=== PATIENT | male | born 1975 | race Caucasian/White ===

== ENCOUNTER 2018-03-12 07:46 | Outpatient (CLI) | payer BC, OTHER ==
[2018-03-14 10:41] LABS: HSV 2 IGG TYPE SPECIFIC AB <0.90 index
[2018-03-14 12:27] LABS: HEPATITIS B CORE AB TOTAL NON-REACTIVE (NON-REACTIVE)
[2018-03-14 15:01] LABS: HIV AG/AB 4TH GEN NON-REACTIVE (NON-REACTIVE)
== END 2018-03-12 23:59 | disposition home or self-care (01) ==
LOC: LAB.WCP 07:46
PROVIDERS: ATTEND Family Medicine
DX: Z72.89 Other problems related to lifestyle (principal)
CPT/HCPCS: 36415; 81599; 86592; 86695; 86696; 86704; 86803; 87389; 87491; 87591

== ENCOUNTER 2020-01-15 19:53 | Outpatient (CLI) | payer OTHER ==
--- NOTE | 2020-01-16 09:43 | XRAY Report ---
PROCEDURE: Knee 4 View BILAT INDICATIONS: ARTHRITIS, LEFT KNEE TECHNIQUE: 3 views of the right and left knee(s) were acquired. COMPARISON: None. FINDINGS: Bones: No fractures or dislocations. No suspicious bony lesions. Postsurgical changes compatible pr ior left knee ACL repair are noted. Mild lateral knee tricompartmental osteoarthritis. Soft tissues: No joint effusion. No suspicious soft tissue calcifications. IMPRESSION: 1. Status post left ACL repair. 2. Mild bilateral knee tricompartmental osteoarthritis. 3. No acute osseous lesion. If there is continued clinical concern for pathology, then advanced imagi ng (CT, MR, bone scan) should be considered for further evaluation. Reviewed by: Lucita Godinez MD, PhD on 01/16/2020 9:41 AM PST Approved by: Lucita Godinez MD, PhD on 01/16/2020 9:41 AM PST Station ID: [id number]
== END 2020-01-15 19:54 | disposition home or self-care (01) ==
LOC: DI 19:53
PROVIDERS: ATTEND Physician Assistant
DX: M17.0 Bilateral primary osteoarthritis of knee (principal)

== ENCOUNTER 2020-07-10 18:15 | Outpatient (CLI) | payer OTHER ==
--- NOTE | 2020-07-11 09:35 | XRAY Report ---
PROCEDURE: Lumbar Spine 2 View INDICATIONS: LUMBAR RADICULOPATHY TECHNIQUE: 2 views of the lumbar spine were acquired. COMPARISON: None. FINDINGS: Bones: 5 [id number] vertebrae are present. There is normal bony alignment. No vertebral body compression fractures. No suspicious bony lesions. There is degenerative disc disease, moderate at L4-L5, and mild at other levels. Moderate facet arthropathy at L4-L5 and L5-S1. Soft tissues: Overlying bowel gas pattern is normal. No suspicious soft tissue calcifications. IMPRESSION: Moderate degenerative disc and facet disease in lumbar spine. Reviewed by: Juice Bo MD on 07/11/2020 9:33 AM PDT Approved by: Juice Bo MD on 07/11/2020 9:33 AM PDT Station ID: [id number]
== END 2020-07-10 18:16 | disposition home or self-care (01) ==
LOC: DI 18:15
PROVIDERS: ATTEND Physician Assistant
DX: M47.816 Spondylosis without myelopathy or radiculopathy, lumbar region (principal); M47.817 Spondylosis without myelopathy or radiculopathy, lumbosacral region; M51.36 Other intervertebral disc degeneration, lumbar region

== ENCOUNTER 2022-04-07 08:29 | Outpatient (CLI) | payer OTHER ==
[2022-04-07 08:43] LABS: BASOPHILS % (AUTO) 0.5 %; EOSINOPHILS % (AUTO) 0.5 %; HCT - HEMATOCRIT 40.8 % (42.0-52.0); HGB - HEMOGLOBIN 13.4 g/dL (14.0-18.0); LYMPHOCYTES # (AUTO) 1.3 10^3/uL (1.5-3.5); LYMPHOCYTES % (AUTO) 35.8 %; MEAN CORPUSCULAR HEMOGLOBIN 29.8 pg (27.0-31.0); MEAN CORPUSCULAR HGB CONC 32.8 g/dL (32.0-36.0); MEAN CORPUSCULAR VOLUME 90.7 fL (80.0-94.0); MEAN PLATELET VOLUME 9.4 fL (7.4-11.4); MONOCYTES # (AUTO) 0.3 10^3/uL (0.0-1.0); MONOCYTES % (AUTO) 8.3 %; NEUTROPHILS # (AUTO) 2.1 10^3/uL (1.5-6.6); NEUTROPHILS % (AUTO) 54.9 %; PLT - PLATELET COUNT 172 10^3/uL (130-450); RED CELL DISTRIBUTION WIDTH 12.5 % (12.0-15.0); WHITE BLOOD COUNT 3.7 x10^3/uL (4.8-10.8)
[2022-04-07 09:00] LABS: ALBUMIN/GLOBULIN RATIO 1.3 (1.0-2.2); ALKALINE PHOSPHATASE 57 IU/L (42-121); ALT ALANINE AMINOTRANSFERASE 20 IU/L (10-60); AST ASPARTATE AMINOTRANSFERASE 18 IU/L (10-42); BILIRUBIN,TOTAL 0.6 mg/dL (0.2-1.0); BUN - BLOOD UREA NITROGEN 17 mg/dL (6-20); CALCIUM 8.3 mg/dL (8.5-10.3); CARBON DIOXIDE - CO2 28 mmol/L (21-32); CHLORIDE 105 mmol/L (101-111); CHOL/HDL RATIO 4.1 (<5.0); CHOLESTEROL 174 mg/dL; CREATININE 0.9 mg/dL (0.6-1.2); GFR - MDRD 90 (>89); GLUCOSE 99 mg/dL (70-100); HDL CHOLESTEROL 42 mg/dL; LDL CHOLESTEROL,CALCULATED 119 mg/dL; LDL/HDL RATIO 2.8 (<3.6); POTASSIUM 4.4 mmol/L (3.5-5.0); SODIUM 138 mmol/L (135-145); TRIGLYCERIDES 64 mg/dL; VLDL CHOLESTEROL 13 mg/dL
[2022-04-07 09:10] LABS: THYROID STIMULATING HORMONE 3.79 uIU/mL (0.34-5.60)
--- NOTE | 2022-04-07 21:00 | XRAY Report ---
PROCEDURE: Knee 3 View RT INDICATIONS: RIGHT KNEE PAIN TECHNIQUE: 3 views of the right knee(s) were acquired. COMPARISON: Knee radiographs 01/15/2020 FINDINGS: Bones: No acute fracture or dislocation. No definite or substantial joint space narrowing. Soft tissues: No joint effusion. No suspicious soft tissue calcifications. IMPRESSION: No acute osseous abnormality. If symptoms persist, follow-up radiographs and/or CT or MR I may be helpful for further evaluation. Reviewed by: Smooth Leslie MD on 04/07/2022 8:59 PM PST Approved by: Smooth Leslie MD on 04/07/2022 8:59 PM PST Station ID: [id number]
== END 2022-04-07 08:30 | disposition home or self-care (01) ==
LOC: LAB 08:29 → DI 08:30
PROVIDERS: ATTEND Physician Assistant
DX: M25.561 Pain in right knee (principal); R53.83 Other fatigue; E78.6 Lipoprotein deficiency
CPT/HCPCS: 36415; 80053; 80061; 83721; 84403; 84443; 85025

== ENCOUNTER 2022-04-15 08:36 | Outpatient (CLI) | payer OTHER ==
[2022-04-15 09:21] VITALS: BP 126/70
--- NOTE | 2022-04-15 09:21 | SLEEP CARE CONSULTATION ---
Information from patient questionnaire entered by Satish Lucia. I have reviewed and concur with the information entered by Satish Lucia. This document represents the service I personally performed and the decisions made by me, Janine Young ARNP. History of Present Illness Service Date and Time: 04/15/2022 0836 Reason for Visit: New patient Chief Complaint: reports: Insomnia, Unrefreshed sleep, Observed pauses in breathing, Fatigue Date of Onset: 10+YRS Usual bedtime: 9-12 Time it takes to fall asleep: VARIES Snores at night: Yes Observed to quit breathing while asleep: Yes Sleeps alone due to snoring: Yes Number of times waking at night: 1-2 Reasons for waking at night: reports: Snoring, Gasping for air (only when falling asleep), Bathroom. denies: Choking Toss, Turn, or Twitch while sleeping: Yes Recalls having dreams: Yes Usually gets out of bed at: 430-6AM Feels refreshed in the morning: No (unless he sleeps for 10-12 hours) Morning headache: No Sleepy or fatigued during the day: Yes Ever fallen asleep while driving: No (occasional drowsy driving in afternoons) Takes day naps: No Prior sleep studies: No Additional HPI information: I had the pleasure of seeing BROOKE SANFORD today regarding the possibility of him having a sleep disorder. His current complaints are unrefreshed sleep, observed pauses in breathing and fatigue. He states he has a feeling of restlessness and does not feel he is getting enough sleep. He has been told that he snores loudly enough that he will sleep separate from often. His has seen him stop breathing at night and tells him that he snores through his nose. He states he sleeps on his stomach and keeps his mouth closed usually. He states he feels more rested if he can get 10-12 hours of sleep. - Parasomnia Symptoms Ever been unable to move upon waking from sleep: No Walks in sleep: No Talks in sleep: Yes (mumbles in sleep) Ever acted out dreams in sleep: No Ever felt weak in the knees when startled or emotional: No Bothered by creepy, crawly, restless sensations in legs: No Problems with memory or concentration: Yes (both; concentration depends on what doing; memory worse) Subjective Initial Superior Sleepiness Scale score: 12 (04/15/22) Past Medical History Past Medical History: reports: Claustrophobia, Attention deficit, Other (facial injury, deviated septum repaired; ACL torn, repaired; Compression fracture vertebrae; 3 compressed lower spine; Diverticulitis, surgical repair ) Social History The patient's occupation is a [employer]. Patient is and lives in [place]. Have you smoked in the past 12 months: Yes (socially; chews tobacco regularly) Years of smokin Quit date: 2015 Alcohol use: Yes Alcohol amount and frequency: 1-3 PER DAY OBSTAINING FOR ONE YEAR Caffeine use: Yes Caffeine amount and frequency: 28OZ 7 DAYS A WEEK IN AM Family History Family history of sleep disordered breathing: Yes Family Hx Sleep Apnea: Mother: Snoring, Sleep apnea - Treated, Sibling: Snoring, Sleep apnea - Treated Allergies and Home Medications Known drug allergies: No Drug allergies reviewed: Yes (NKDA) Home medication list reviewed: Yes Allergy and home medication list: Medications: Gabapentin, prn ibuprofen, prn Tylenol, prn Review of Systems Cardiovascular: denies: high blood pressure Gastrointestinal: denies: heartburn Urinary: reports: frequency, urgency Neurological: reports: headaches, head trauma (multiple concussions throughout life) Psychiatric: reports: Attention Deficit Hyperactivity, claustrophobia Ear/Nose/Throat: reports: nasal congestion, injury to nose. denies: tonsillectomy Musculoskeletal: reports: joint pain, neck pain, back pain Physical Exam Vital signs obtained and entered by: SATISH Borrego MA Blood Pressure: 126/70 (LEFT ARM) Cuff size: regular Heart Rate: 73 O2 Saturation: 97 Height: 6 ft 1 in Weight: 215 lb 6.4 oz Body Mass Index: 28.4 BMI Classification: Overweight Neck circumference: 15.75 Mouth and throat: narrow oropharynx Soft palate: long Hard palate: normal Uvula: normal Uvula visualization: 25% Mallampati Class III Tongue: enlarged in size with teeth daniels on lateral edges Tonsils: small Neck: normal w/o lymphadenopathy or thyromegaly Heart: regular rate and rhythm Lungs: clear bilaterally Impression and Plan 1. Suspected Obstructive Sleep Apnea-Hypopnea Syndrome, as suggested by a history of loud and irregular snoring, observed cessation of breath while asleep, gasping or choking in sleep, unrefreshed sleep, cognitive impairment, and excessive daytime sleepiness. Narrow oropharynx and obesity are common predisposing factors for obstructive sleep apnea-hypopnea syndrome. I recommend proceeding to polysomnography to confirm the diagnosis and to assess severity. If the patient has significant sleep disordered breathing, a manual CPAP titration study will also be performed to find the optimal treatment pressure. I informed the patient of what the sleep studies involve and after some discussion, obtained agreement to proceed. The pathophysiology of obstructive sleep apnea-hypopnea syndrome was discussed with the patient and health risks of cardiovascular and cerebrovascular disease if not treated. Risks of drowsy driving discussed in detail and patient advised to avoid long distance driving and to pull out operator at the first sign of drowsiness. Patient agreed to plan. * Schedule polysomnography * Avoid long distance driving or driving when feeling sleepy. * Avoid alcohol, sedative and muscle relaxant around bedtime. * Attempt to lose weight. * Review instructions provided by trained office staff on how to prepare for the sleep study. * Return for follow-up after sleep study completed. Counseling Topics: Weight loss health impact Visit Type: In Office Time Spent with Patient (minutes): 31 Provider Statement: I spent 100% of the Face to Face Visit with the patient with greater than 50% spent counseling the patient and coordination of care.
== END 2022-04-15 08:37 | disposition home or self-care (01) ==
LOC: SC 08:36
PROVIDERS: ATTEND Nurse Practitioner Family
DX: G47.10 Hypersomnia, unspecified (principal); R53.83 Other fatigue; G47.8 Other sleep disorders; R06.83 Snoring; R06.81 Apnea, not elsewhere classified; E66.3 Overweight; Z68.28 Body mass index [BMI] 28.0-28.9, adult; F17.220 Nicotine dependence, chewing tobacco, uncomplicated
CPT/HCPCS: 99203; 99212

== ENCOUNTER 2022-05-03 09:44 | Outpatient (CLI) | payer OTHER ==
--- NOTE | 2022-05-04 08:41 | MRI Report ---
PROCEDURE: KNEE WO - RT INDICATIONS: RIGHT KNEE PAIN TECHNIQUE: Noncontrast sagittal PD fast spin echo and T2 fast spin echo with fat saturation, sagittal 3-D gradie nt sequence with fat saturation; coronal T1 spin echo and PD fast spin echo with fat saturation, and axial PD fast spin echo with fat saturation through the knee. COMPARISON: X-ray right knee, 04/07/2022. FINDINGS: Image quality: Excellent. Menisci: There is ramp tear involving the peripheral aspect of the posterior horn of the medial menis cus (series 5 image 24). Suspect a small horizontal tear at the junction of the body and anterior hor n of the medial meniscus (series 5 image 17). The lateral meniscus demonstrates normal morphology and internal signal. The meniscal root ligaments appear intact. Cruciate ligaments: The anterior and posterior cruciate ligaments appear intact. Medial structures: The medial collateral ligament appears intact. The semimembranosus tendon insert ions and meniscocapsular junction appear intact. Visualized portions of the pes anserinus tendons ap pear normal. No abnormal bursal fluid. Lateral structures: The lateral collateral ligament, long and short heads of the biceps femoris tend on appear intact. The popliteus tendon appears normal. Iliotibial band appears normal. Anterior structures: The quadriceps and patellar tendons appear intact. Patellar alignment is dennys l. No femoral trochlear dysplasia or ventral trochlear prominence. There is edema in the suprapatell ar fat pad medially (series 6 image 20-23) with associated reactive cortical and marrow signal change in the medial aspect of patella, suggesting fat pad impingement. Bones and cartilage: No bone marrow contusions or fractures. There is mild tricompartmental cartilag e thinning and fibrillation. Joint space: There is small knee joint fluid. No Ferrer's cyst. Normal appearing synovial plicae ar e incidentally noted. IMPRESSION: 1. Ramp tear of the posterior horn of the medial meniscus. In addition, there is suggestion of a smal l horizontal tear at the junction of the anterior horn and body of the medial meniscus. 2. Edema in the suprapatellar fat pad medially with associated signal change in the medial aspect of patella, suggesting fat pad impingement. 3. Mild tricompartmental cartilage thinning and fibrillation. 4. Small knee joint effusion. Reviewed by: Juice Bo MD on 05/04/2022 8:40 AM PST Approved by: Juice Bo MD on 05/04/2022 8:40 AM [facility] Station ID: [id number]
== END 2022-05-03 09:45 | disposition home or self-care (01) ==
LOC: DI 09:44
PROVIDERS: ATTEND Physician Assistant
DX: S83.241A Other tear of medial meniscus, current injury, right knee, initial encounter (principal); M94.261 Chondromalacia, right knee; M25.461 Effusion, right knee

== ENCOUNTER 2022-05-11 08:19 | Outpatient (CLI) | payer OTHER | END 2022-05-11 08:20 | disposition home or self-care (01) | LOC: SC 08:19 | PROVIDERS: ATTEND Nurse Practitioner Family | DX: G47.33 Obstructive sleep apnea (adult) (pediatric) (principal); E66.3 Overweight; Z68.28 Body mass index [BMI] 28.0-28.9, adult | CPT/HCPCS: 95806 ==

== ENCOUNTER 2022-06-02 15:28 | Outpatient (CLI) | payer OTHER ==
--- NOTE | 2022-06-02 09:20 | SLEEP CARE CONSULTATION ---
Information from patient questionnaire entered by Jacquie Lucia. I have reviewed and concur with the information entered by Jacquie Lucia. This document represents the service I personally performed and the decisions made by , Janine Young ARNP. History of Present Illness Service Date and Time: 06/02/2022 0900 Initial [place] Sleepiness Scale score: 12 (04/15/22) Current [place] Sleepiness Scale score: 7 (06/02/22) Additional HPI information: MARQUIS SANFORD returns via video telehealth visit for follow up and results of the recently performed home sleep study. I explained the pathophysiology behind obstructive sleep apnea. We then spent quite a bit of time discussing different treatment options. For mild obstructive sleep apnea, surgery and oral appliance are alternatives to nasal CPAP therapy but in moderate or severe cases, nasal CPAP is the most effective and reliable treatment. I reviewed the impact of weight changes on sleep apnea and strongly recommended losing weight. After some discussion, the patient opted to try to lose weight. He states he has 20 pounds to go. He is relocating to [place] and will not be back in this area for any follow ups. Patient counseled not drink alcohol less than 4 hours before bedtime as it can increase snoring and apnea. Patient was cautioned about risks of drowsy driving until sleepiness symptoms resolve. Patient denies drowsy driving. Sleep Study - Results Type of Sleep Study: Home sleep study (COMPLETED 05/11/22) Prior sleep studies: No Polysomnography/Home Sleep Study results: Physician Impression: The quality of the study is fair due to partial loss of airflow signal. The length of the study is adequate (> 240 minutes). Please also see the tabulated and graphic data. 1. Obstructive Sleep Apnea-Hypopnea (ICD-10 G47.33), mild, with an AHI of 6.6/hr and lin SaO2 of 88%. During the study, the patient had 38 apneas (38 obstructive, 0 central, 0 mixed) and 4 hypopneas. The longest episode lasted 76.0 seconds. The patient did not sleep supine during this study. 2. Hypoxemia (ICD-10 R09.02), minimal, with the lowest oxygen saturation of 88 % and 0.2 minutes with SaO2 under 90%. Baseline oxygen saturation was normal (Average oxygen saturation was 94%). Allergies and Home Medications Known drug allergies: No Drug allergies reviewed: Yes Home medication list reviewed: Yes (no changes) Allergy and home medication list: Allergies No Known Drug Allergies Allergy (Verified 06/01/22 13:40) Review of Systems Review of systems same as previous: Yes (Knee MRI) Physical Exam Vital signs obtained and entered by: JACQUIE Borrego MA Height: 6 ft 1 in (PER PT) Weight: 205 lb (PER PT) Body Mass Index: 27.0 BMI Classification: Overweight Impression and Plan 1. Obstructive Sleep Apnea-Hypopnea Syndrome, mild, with lowest oxygen saturation of 88%. Obviously this is the cause of the patients symptoms of unrefreshed sleep, and excessive daytime sleepiness. Marquis is relocating to [place]. He states he wants to try to lose the 20 pounds he needs to lose to get to a normal weight. His BMI is at 27.0 today. He does not want to try any other therapy because he will not be able to follow up in [place]. He will establish with a primary doctor in his new home area and seek therapy as needed there for his sleep apnea. 2. Hypoxemia, minimal, with a lin oxygen saturation of 88% and 0.2 minutes spent under 90%. His baseline oxygen saturation was normal with an average oxygen saturation of 94%. * Continue to try to lose weight to reduce snoring and sleep apnea. * Avoid alcohol consumption near bedtime. * The patient is again cautioned about driving until sleepiness completely resolves. * Return as needed. Counseling Topics: Weight loss health impact Visit Type: Telehealth Video Video Type: DoxGlimpse Patient Location: Home Location of Provider: Office Patient agrees and consents to this telehealth visit type: Yes Patient agrees to have their insurance billed: Yes Time Spent with Patient (minutes): 20 Provider Statement: I spent 100% of the Telehealth Video Call with the patient with greater than 50% spent counseling the patient and coordination of care.
== END 2022-06-02 15:29 | disposition home or self-care (01) ==
LOC: SC 15:28
PROVIDERS: ATTEND Nurse Practitioner Family
DX: G47.33 Obstructive sleep apnea (adult) (pediatric) (principal); R09.02 Hypoxemia; E66.3 Overweight; Z68.27 Body mass index [BMI] 27.0-27.9, adult